=== PATIENT | female | born 1965 | race Caucasian/White ===

== ENCOUNTER → 2024-07-23 | Outpatient (CLI) | payer BC ==
[~2024-07-23] MED LIST: GADOTERATE MEGLUMINE 10 MMOL/20 ML VIAL IV ONE
== END | disposition home or self-care (01) ==
LOC: RAH 10:45
PROVIDERS: ATTEND Otolaryngology Plastic Surgery within the Head & Neck
DX: H74.8X3 Other specified disorders of middle ear and mastoid, bilateral (principal); H90.3 Sensorineural hearing loss, bilateral
CPT/HCPCS: 70553; A9575 ×2